=== PATIENT | male | born 1980 | race Caucasian/White ===

== ENCOUNTER 2019-10-11 14:28 | Emergency (ER) | payer SELFPAY ==
[2019-10-11 14:29] VITALS: BP 162/118; PULSE 103; RESP 18; TEMP 37; O2SAT 98; BMI 27.6
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
[2019-10-11 15:59] VITALS: BP 160/106; PULSE 84; RESP 18; O2SAT 98
== END 2019-10-11 16:03 | disposition home or self-care (01) ==
LOC: ER 15:42
PROVIDERS: Emergency Provider Emergency Medicine
DX: S01.81XA Laceration without foreign body of other part of head, initial encounter (principal); S60.551A Superficial foreign body of right hand, initial encounter; V03.90XA Pedestrian on foot injured in collision with car, pick-up truck or van, unspecified whether traffic or nontraffic accident, initial encounter
CPT/HCPCS: 12011; 12345; 70450; 73130; 73562; 99282; 99283